=== PATIENT | female | born 1935 | race Caucasian/White ===

== ENCOUNTER → 2016-06-19 | Outpatient (CLI) | payer MEDICARE ==
--- NOTE | 2016-06-21 12:07 | MM ---
Reason for exam: screening (asymptomatic). Last mammogram was performed 1 year and 6 months ago. History: Patient is postmenopausal. Physical Findings: A clinical breast exam by your physician is recommended on an annual basis and results should be correlated with mammographic findings. MG Screening Mammo w CAD Bilateral CC and MLO view(s) were taken. Prior study comparison: December 06, 2014, bilateral MG screening mammo w CAD. November 24, 2013, bilateral MG screening mammo w CAD. December 20, 2011, bilateral digital screening mammo w/CAD. The breast tissue is heterogeneously dense. This may lower the sensitivity of mammography. Unchanged global asymmetries. No significant changes when compared with prior studies. ASSESSMENT: Negative, BI-RAD 1 RECOMMENDATION: Routine screening mammogram of both breasts in 1 year.
== END ==
LOC: RADMAMWWP 13:09
PROVIDERS: ATTEND Internal Medicine
DX: Z12.31 Encounter for screening mammogram for malignant neoplasm of breast (principal)

== ENCOUNTER → 2021-09-14 | Outpatient (CLI) | payer MEDICARE ==
--- NOTE | 2021-09-14 12:31 | CA ---
Stress Echo Report Larissa Lugo Age: 86 Gender: F : 1935 Exam Date: 09/14/2021 11:11 Exam Location: [facility] Ht (in): 63 Wt (lb): 127 Ordering Physician: Cristian Samuels MD Referring Physician: Rico Thomas Astronautical Engineer: Lalita Wilson RDCS Technologist Procedure CPT: Indication: Z01.818 pre surgical testing ICD-9 Codes: Rhythm: Patient History: Cardiac Medications: Medications in past 24 hours: Contrast: Stress Results Protocol: Ricardo Total dose(mL): Exercise Duration (min:sec): 1:[address] Depression (mm): Angina Score: Mruphy Score: METS: 2.0 Resting HR: 83 Resting BP: 138 / 79 Peak HR: 115 Peak BP: 188 / 85 Max Predicted HR: 135 85 % Max Predicted HR Target HR: 115 Double Product: [id number] Stress Summary: BP Response: Reason for Termination: Cardiac Symptoms: ECG Analysis Resting ECG: Stress ECG: Arrhythmia: Echo Analysis Resting Echo: Peak Echo Analysis: MEASUREMENTS (Male/Female) Normal Values CONCLUSIONS Patient underwent exercise stress echo with a Ricardo protocol treadmill stress test. Patient exercised into Stage 1 for a total of 1 minutes 10 seconds reaching a total of 2 METS. Patient's maximum heart rate was 115 which represented 85% age- predicted maximum heart rate. Stress EKG portion: At baseline patient's EKG showed normal sinus rhythm, normal axis, mild 0.[address] depressions in the inferior and lateral leads. At peak exercise, EKG showed no significant change from baseline. Stress echo portion: 2-D echocardiogram was performed in the parasternal long, personal short, apical 2 and apical four-chamber views at rest, peak exercise and in recovery. At baseline, echocardiogram showed left ventricular ejection fraction 60% without wall motion abnormalities. With peak exercise, echocardiogram shows improvement in left ventricular ejection fraction, increase contractility, decrease in left ventricular end systolic dimension without wall motion abnormalities consistent with a normal response to exercise. Conclusions: 1. Normal echo response to exercise without evidence of inducible ischemia. 2. Nonspecific EKG portion secondary baseline EKG abnormalities 3. Poor exercise capacity. Dr. David Foreman DO (Electronically Signed) Final Date: 14 September 2021 12:31
== END | disposition home or self-care (01) ==
LOC: RADNMMAIN 09:51
PROVIDERS: ATTEND Family Medicine
DX: Z01.818 Encounter for other preprocedural examination (principal); F32.A Depression, unspecified
CPT/HCPCS: 93351